=== PATIENT | male | born 1950 | race Asian ===

== ENCOUNTER 2025-02-03 09:39 | Inpatient (IN) | payer OTHER ==
[~2025-02-03] VITALS: Ht 170.2 cm; Wt 77.1 kg
[~2025-02-03 09:39] MED LIST: ACETAMINOPHEN PO; AMLO5TAB88 PO; ASPI-1406 PO; ATOR40TA70 PO; DAPA5TAB PO; DILT360C51 PO; DOXA2TAB2 PO; ENAL-79 PO; ERGO1250 PO; FENO145T25 PO; FINE10TA PO; GLUXL5 PO; HYDR-2988 PO; KETO-104 BOTHEYE; MOXI3DRO12 EACHEYE; OMEG-221 PO; VITA59DR
[2025-02-03 09:57] VITALS: O2SAT 99
[2025-02-03 10:41] LABS: BASOPHILS % 0.7 % (0.0-2.0); EOSINOPHILS % 1.5 % (0.0-5.0); HEMATOCRIT. 44.2 % (42.0-52.0); HEMOGLOBIN. 14.8 g/dL (14.0-18.0); LYMPHOCYTES % 15.9 % (20.0-50.0); MEAN PLATELET VOLUME 8.7 fl (7.4-10.4); MONOCYTES % 4.8 % (2.0-8.0); NEUTROPHILS % 77.1 % (40.0-76.0); PLATELET 257 x1000/uL (130-400); RED BLOOD CELL COUNT 5.12 mill/uL (4.7-6.1); RED CELL DISTRIBUTION WIDTH 14.6 % (11.6-14.6)
[2025-02-03 11:01] LABS: CREATININE 3.6 mg/dL (0.6-1.3); UREA NITROGEN BLOOD 42.0 mg/dL (9-23)
[2025-02-03 12:00] VITALS: BP 187/80; PULSE 77; RESP 18; TEMP 36.5; O2SAT 99
[2025-02-03] MEDS ORDERED: DEXTROSE 50% WATER 50ML SYRINGE IV PRN (14:00)
[2025-02-03] MEDS ORDERED: ONDANSETRON HCL 4MG/2ML INJ IV PRN (14:00)
[2025-02-03] MEDS ORDERED: ACETAMINOPHEN 325MG TABLET PO PRN (14:00)
[2025-02-03] MEDS: ASPIRIN 81MG EC TABLET PO SCH (15:27)
[2025-02-03] MEDS: SODIUM CHLORIDE 0.9% 1,000 ML IV SCH (15:27)
[2025-02-03] MEDS: AMLODIPINE 5MG TABLET PO SCH (15:27)
[2025-02-03] MEDS: HYDRALAZINE HCL 10MG TABLET PO SCH (16:05)
[2025-02-03] MEDS ORDERED: *PATIENT'S OWN MEDICATION STORAGE XX SCH (16:15)
[2025-02-03 16:17] VITALS: BP 213/95; PULSE 115; RESP 20; TEMP 35.2504
[2025-02-03] MEDS: BLOOD SUGAR DIAGNOSTIC STRIP TEST SCH (16:40)
[2025-02-03 17:03] LABS: TROPONIN I HIGH SENSITIVITY 4 ng/L (3.0-53)
[2025-02-03 17:04] LABS: PHOSPHORUS 4.2 mg/dL (2.5-4.9)
[2025-02-03] MEDS: INSULIN LISPRO 100 UNITS/ML SUBCUT SCH (17:10)
[2025-02-03] MEDS: CLONIDINE 0.1MG TABLET PO PRN (18:36)
[2025-02-03] MEDS: DILTIAZEM HCL 180MG CAPSULE ER 24HR PO SCH (18:37)
[2025-02-03 20:00] VITALS: BP 175/75; PULSE 18; TEMP 36.2; O2SAT 97
[2025-02-03 20:26] LABS: CLARITY URINE CLEAR (CLEAR); GLUCOSE URINE 2+ (NEGATIVE); KETONES URINE NEGATIVE (NEGATIVE); LEUKOCYTE ESTERASE URINE NEGATIVE (NEGATIVE); NITRITE URINE NEGATIVE (NEGATIVE); OCCULT BLOOD URINE NEGATIVE (NEGATIVE); PH URINE 5.5 (4.5-8.0); PROTEIN URINE 3+ (NEGATIVE); SPECIFIC GRAVITY URINE 1.015 (1.005-1.030); UROBILINOGEN URINE 0.2 E.U./dL (0.2-1.0)
[2025-02-03] MEDS: ATORVASTATIN CALCIUM 40MG TABLET PO SCH (20:30)
[2025-02-03] MEDS: METOPROLOL TARTRATE 50MG TABLET PO SCH (20:35)
[2025-02-03 21:06] LABS: COLOR URINE STRAW (YELLOW)
[2025-02-03 21:07] LABS: BACTERIA URINE NONE SEEN; MUCUS URINE TRACE /lpf (NONE/TRACE); RBC URINE NONE SEEN /hpf (0-2); SQUAMOUS EPITHELIAL CELL URINE NONE SEEN /lpf (RARE/1+); WBC URINE 0-2 /hpf (0-2)
[2025-02-04] VITALS: BP 155/58; PULSE 19; RESP 19; TEMP 36; O2SAT 99
[2025-02-04] MEDS ORDERED: HYDRALAZINE 20MG/ML VIAL IV PRN (00:15)
[2025-02-04] MEDS ORDERED: HYDRALAZINE 10 MG in SODIUM CHLORIDE 0.9% 49.5 ML IV PRN (00:15)
[2025-02-04 00:34] LABS: TRIGLYCERIDE 198.0 mg/dL (0-150)
[2025-02-04 00:35] LABS: LDL CHOLESTEROL 90.0 mg/dL (5-100)
[2025-02-04 01:05] LABS: TROPONIN I HIGH SENSITIVITY 12 ng/L (3.0-53)
[2025-02-04] MEDS: HYDRALAZINE HCL 25MG TABLET PO SCH (01:21)
[2025-02-04] MEDS: CARVEDILOL 3.125 MG TABLET PO SCH ×2 (01:22→22:27)
[2025-02-04 04:00] VITALS: BP 113/68; PULSE 60; RESP 19; TEMP 36.6; O2SAT 97
[2025-02-04 07:21] LABS: BASOPHILS % 0.6 % (0.0-2.0); EOSINOPHILS % 2.5 % (0.0-5.0); HEMATOCRIT. 41.1 % (42.0-52.0); HEMOGLOBIN. 13.8 g/dL (14.0-18.0); LYMPHOCYTES % 17.3 % (20.0-50.0); MEAN PLATELET VOLUME 8.8 fl (7.4-10.4); MONOCYTES % 5.1 % (2.0-8.0); NEUTROPHILS % 74.5 % (40.0-76.0); PLATELET 225 x1000/uL (130-400); RED BLOOD CELL COUNT 4.83 mill/uL (4.7-6.1); RED CELL DISTRIBUTION WIDTH 14.5 % (11.6-14.6)
[2025-02-04 07:33] LABS: T4 FREE 1.64 ng/dL (0.89-1.76)
[2025-02-04 07:35] LABS: CREATININE 3.3 mg/dL (0.6-1.3)
[2025-02-04 07:36] LABS: LDL CHOLESTEROL 90 mg/dL (5-100); TRIGLYCERIDE 185 mg/dL (0-150); UREA NITROGEN BLOOD 46 mg/dL (9-23)
[2025-02-04 07:38] LABS: PHOSPHORUS 4.0 mg/dL (2.5-4.9)
[2025-02-04 08:00] VITALS: BP 167/65; PULSE 59; RESP 17; TEMP 36.1; O2SAT 100
[2025-02-04] MEDS ORDERED: AMLODIPINE 5MG TABLET PO SCH (09:00)
[2025-02-04] MEDS: PANTOPRAZOLE SODIUM 40 MG/VIAL IV SCH (10:01)
[2025-02-04] MEDS: DOXAZOSIN MESYLATE 2MG TABLET PO SCH (10:50)
[2025-02-04 12:00] VITALS: BP 182/69; PULSE 60; RESP 17; TEMP 36.6; O2SAT 100
[2025-02-04] MEDS ORDERED: SODIUM ZIRCONIUM CYCLOSILICATE 10GM/PACKET PO SCH (12:00)
[2025-02-04 16:00] VITALS: BP 161/49; PULSE 56; RESP 17; TEMP 36.5; O2SAT 96
[2025-02-04] MEDS: HYDRALAZINE HCL 10MG TABLET PO SCH (16:17)
[2025-02-04] MEDS: SODIUM ZIRCONIUM CYCLOSILICATE 10GM/PACKET PO SCH (16:17)
[2025-02-04 20:00] VITALS: BP 169/60; PULSE 88; RESP 18; TEMP 36.2; O2SAT 97
[2025-02-04] MEDS: SODIUM POLYSTYRENE SULFONATE 15 G/60 ML BOT PO NR (20:57)
[2025-02-05] VITALS: BP 164/60; PULSE 87; RESP 17; TEMP 36.4; O2SAT 100
[2025-02-05] MEDS: ISOSORBIDE MONONITRATE 30MG TABLET SR 24HR PO SCH (01:00)
[2025-02-05 04:00] VITALS: BP 161/72; PULSE 81; RESP 17; TEMP 36.3; O2SAT 100
[2025-02-05 06:28] LABS: BASOPHILS % 0.7 % (0.0-2.0); EOSINOPHILS % 2.9 % (0.0-5.0); HEMATOCRIT. 40.7 % (42.0-52.0); HEMOGLOBIN. 13.6 g/dL (14.0-18.0); LYMPHOCYTES % 16.1 % (20.0-50.0); MEAN PLATELET VOLUME 8.9 fl (7.4-10.4); MONOCYTES % 5.5 % (2.0-8.0); NEUTROPHILS % 74.8 % (40.0-76.0); PLATELET 220 x1000/uL (130-400); RED BLOOD CELL COUNT 4.83 mill/uL (4.7-6.1); RED CELL DISTRIBUTION WIDTH 14.7 % (11.6-14.6)
[2025-02-05 08:00] VITALS: BP 154/63; PULSE 86; RESP 20; TEMP 36.6; O2SAT 97
[2025-02-05 10:55] LABS: CREATININE 3.5 mg/dL (0.6-1.3)
[2025-02-05 10:56] LABS: UREA NITROGEN BLOOD 51.0 mg/dL (9-23)
[2025-02-05] MEDS ORDERED: HYDRALAZINE HCL 25MG TABLET PO SCH (14:00)
[2025-02-05 14:07] VITALS: BP 149/56; PULSE 97; RESP 20; TEMP 97.9
== END 2025-02-05 14:54 | disposition home or self-care (01) | DRG 199 ==
LOC: ER 09:39 → 7EST 11:38 → EDBEDREQTM 12:03 → EDBEDREQ 12:03 → ENRESERV 12:24
PROVIDERS: ADMIT Hospitalist; ATTEND Hospitalist
DX: I16.1 Hypertensive emergency (principal); E87.20 Acidosis, unspecified; N18.4 Chronic kidney disease, stage 4 (severe); N17.9 Acute kidney failure, unspecified; R32 Unspecified urinary incontinence; R33.9 Retention of urine, unspecified; N39.0 Urinary tract infection, site not specified; I12.9 Hypertensive chronic kidney disease with stage 1 through stage 4 chronic kidney disease, or unspecified chronic kidney disease; N40.1 Benign prostatic hyperplasia with lower urinary tract symptoms; E11.22 Type 2 diabetes mellitus with diabetic chronic kidney disease; E78.00 Pure hypercholesterolemia, unspecified; Z79.4 Long term (current) use of insulin; Z79.82 Long term (current) use of aspirin; Z79.84 Long term (current) use of oral hypoglycemic drugs; Z79.899 Other long term (current) drug therapy
CPT/HCPCS: 36415; 76770; 80048; 80061; 81003; 82550; 82962; 83036; 83735; 84100; 84145; 84439; 84443; 84484; 85025; 93005; 93970; 99291; J1815; J2470; J7030